=== PATIENT | male | born 1975 | race Caucasian/White ===

== ENCOUNTER 2017-07-23 09:56 | Emergency (ER) | payer OTHER, MEDICAID ==
[2017-07-23] MEDS: morphine 4 MG/ML VIAL IV (11:48)
[2017-07-23] MEDS: ONDANSETRON 4 MG INJ IV (11:48)
[2017-07-23] MEDS: SOD CHLORIDE 0.9% 1,000 ML IV (11:49)
[2017-07-23 11:51] LABS: ADD MAN DIFF? NO
[2017-07-23 12:01] LABS: WHITE BLOOD COUNT 12.5 10^3/ul (4.8-10.8)
[2017-07-23 12:01] LABS: ABNORMAL IP MESSAGE 1; BASOPHIL # 0.1 10^3/ul (0.0-0.1); BASOPHILS % 0.5 % (0.0-2.0); EOSINOPHILS # 0.4 10^3/ul (0.0-0.5); EOSINOPHILS % 3.3 % (0.0-7.0); HEMATOCRIT 43.8 % (42.0-52.0); HEMOGLOBIN 15.2 g/dl (14.0-18.0); LYMPHOCYTES # 5.4 10^3/ul (0.8-2.9); LYMPHOCYTES % 43.7 % (15.0-51.0); MEAN CORPUSCULAR HEMOGLOBIN 31.1 pg (29.0-33.0); MEAN CORPUSCULAR HGB CONC 34.7 g/dl (32.0-37.0); MEAN CORPUSCULAR VOLUME 89.6 fl (82.0-101.0); MEAN PLATELET VOLUME 11.5 fl (7.4-10.4); MONOCYTE # 1.2 10^3/ul (0.3-0.9); MONOCYTES % 9.3 % (0.0-11.0); NEUTROPHIL # 5.4 10^3/ul (1.6-7.5); PLATELET COUNT 486 10^3/UL (140-415); POSITIVE DIFF @See below; RED BLOOD COUNT 4.89 10^6/ul (4.70-6.10); RED CELL DISTRIBUTION WIDTH 13.3 % (11.5-14.5)
[2017-07-23 12:13] LABS: ALANINE AMINOTRANSFERASE 154 IU/L (13-69); ALBUMIN 4.5 g/dl (3.3-4.9); ALKALINE PHOSPHATASE 110 IU/L (42-121); ANION GAP 18 (8-16); ASPARTATE AMINO TRANSFERASE 181 IU/L (15-46); BILIRUBIN,INDIRECT 0.4 mg/dl (0-1.1); BILIRUBIN,TOTAL 0.4 mg/dl (0.2-1.3); BLOOD UREA NITROGEN 11 mg/dl (7-20); CALCIUM 9.9 mg/dl (8.4-10.2); CARBON DIOXIDE 29 mmol/L (21-31); CHLORIDE 102 mmol/L (97-110); CREATININE 0.74 mg/dl (0.61-1.24); GLUCOSE 99 mg/dl (70-220); LIPASE 39 U/L (23-300); SODIUM 145 mmol/L (135-144); TOTAL PROTEIN 9.5 g/dl (6.1-8.1)
[2017-07-23 12:14] LABS: ADD UMIC NO; UR ASCORBIC ACID 20 mg/dL (NEGATIVE); UR BILIRUBIN (Dip) NEGATIVE (NEGATIVE); UR BLOOD (Dip) NEGATIVE (NEGATIVE); UR CLARITY CLEAR (CLEAR); UR COLOR YELLOW (YELLOW); UR GLUCOSE (Dip) NEGATIVE (NEGATIVE); UR KETONES (Dip) NEGATIVE (NEGATIVE); UR LEUKOCYTE ESTERASE (Dip) NEGATIVE Leu/ul (NEGATIVE); UR NITRITE (Dip) NEGATIVE (NEGATIVE); UR SPECIFIC GRAVITY (Dip) 1.017 (1.003-1.030); UR TOTAL PROTEIN (Dip) NEGATIVE (NEGATIVE); UR UROBILINOGEN (Dip) NEGATIVE (NEGATIVE)
== END 2017-07-23 14:00 | disposition home or self-care (01) ==
LOC: FTE 09:56
DX: R10.31 Right lower quadrant pain (principal); F17.210 Nicotine dependence, cigarettes, uncomplicated; R11.10 Vomiting, unspecified
CPT/HCPCS: 36415; 74176; 80053; 81003; 83690; 85025; 96374; 96375; 99285-25

== ENCOUNTER 2018-04-27 18:40 | Inpatient (IN) | payer OTHER ==
[2018-04-27 19:19] LABS: WHITE BLOOD COUNT 25.9 10^3/ul (4.8-10.8)
[2018-04-27 19:19] LABS: ABNORMAL IP MESSAGE 1; HEMATOCRIT 26.3 % (42.0-52.0); HEMOGLOBIN 8.7 g/dl (14.0-18.0); MEAN CORPUSCULAR HEMOGLOBIN 29.5 pg (29.0-33.0); MEAN CORPUSCULAR HGB CONC 33.1 g/dl (32.0-37.0); MEAN CORPUSCULAR VOLUME 89.2 fl (82.0-101.0); NUCLEATED RED BLOOD CELLS% 0.7 /100WBC (0.0-0.0); POSITIVE DIFF @See below; RED BLOOD COUNT 2.95 10^6/ul (4.70-6.10)
[2018-04-27 19:27] LABS: ADD MAN DIFF? YES; PLATELET COUNT 7 10^3/UL (140-415)
[2018-04-27 19:28] LABS: PATH REVIEW? YES
[2018-04-27 19:35] LABS: ALANINE AMINOTRANSFERASE 53 IU/L (13-69); ALBUMIN 2.2 g/dl (3.3-4.9); ALBUMIN/GLOBULIN RATIO 0.47; ALKALINE PHOSPHATASE 197 IU/L (42-121); ANION GAP 13 (5-13); ASPARTATE AMINO TRANSFERASE 173 IU/L (15-46); BILIRUBIN,INDIRECT 0.5 mg/dl (0-1.1); BILIRUBIN,TOTAL 0.7 mg/dl (0.2-1.3); BLOOD UREA NITROGEN 55 mg/dl (7-20); CALCIUM 8.1 mg/dl (8.4-10.2); CARBON DIOXIDE 22 mmol/L (21-31); CHLORIDE 101 mmol/L (97-110); CREATININE 1.08 mg/dl (0.61-1.24); Estimated GFR > 60 mL/min (>60); GLUCOSE 124 mg/dl (70-220); LIPASE 13 U/L (23-300); POTASSIUM 5.2 mmol/L (3.5-5.1); SODIUM 136 mmol/L (135-144); TOTAL PROTEIN 6.8 g/dl (6.1-8.1)
[2018-04-27 19:42] LABS: INR 1.82; PARTIAL THROMBOPLASTIN TIME 37.8 Sec (23.0-35.0); PROTIME 21.2 Sec (11.9-14.9); PT RATIO 1.7
[2018-04-27 19:46] LABS: TROPONIN-I 0.049 ng/ml (0.000-0.120)
[2018-04-27 19:48] LABS: ETHANOL < 10.0 mg/dl (0-0)
[2018-04-27] MEDS: ONDANSETRON 4 MG INJ IV (19:57)
[2018-04-27] MEDS: SODIUM CHLORIDE 0.9% 1L BAG IV* (19:57)
[2018-04-27] MEDS: morphine 4 MG/ML VIAL IV (19:57)
[2018-04-27] MEDS: CEFEPIME 2GM/50 ML (PMX) 50 ML IVPB (19:57)
[2018-04-27 20:02] LABS: ANISOCYTOSIS 2+ (0-0); BAND NEUTROPHILS #M 1.2 10^3/ul (0.0-0.6); BAND NEUTROPHILS % (M) 5 % (0-4); BURR CELLS 2+ (0-0); ERYTHROBLAST% (NRBC) (M) 2 % (0-0); GIANT THROMBO% (M) 3 % (0-0); HYPOCHROMASIA 1+ (0-0); LYMPHOCYTES #M 0.5 10^3/ul (0.8-2.9); LYMPHOCYTES % (M) 2 % (15-51); MONOCYTE #M 0.5 10^3/ul (0.3-0.9); MONOCYTES % (M) 2 % (0-11); PLATELET MORPHOLOGY COMMENT @See below; POIKILOCYTOSIS 3+ (0-0); POLYCHROMASIA 2+ (0-0); SEG NEUT #M 23.9 10^3/ul (1.6-7.5); SEGMENTED NEUTROPHILS (M) % 91 % (39-77); SMUDGE%M 11 % (0-0)
[2018-04-27] MEDS: SOD CHLORIDE 0.9% 0 ML IV (20:02)
[2018-04-27] MEDS ORDERED: ONDANSETRON 4 MG INJ IV (20:30)
[2018-04-27] MEDS ORDERED: ACETAMINOPHEN 325 MG TAB PO (20:30)
[2018-04-27] MEDS: VANCOMYCIN 1 GM (PMX) 250 ML IVPB (20:44)
[2018-04-27 22:16] LABS: ADD UMIC YES; UR ASCORBIC ACID NEGATIVE (NEGATIVE); UR BACTERIA FEW /HPF (NONE SEEN); UR BILIRUBIN (Dip) NEGATIVE (NEGATIVE); UR BLOOD (Dip) 2+ mg/dL (NEGATIVE); UR CLARITY CLEAR (CLEAR); UR COLOR YELLOW (YELLOW); UR GLUCOSE (Dip) NEGATIVE (NEGATIVE); UR KETONES (Dip) NEGATIVE (NEGATIVE); UR LEUKOCYTE ESTERASE (Dip) NEGATIVE Leu/ul (NEGATIVE); UR NITRITE (Dip) NEGATIVE (NEGATIVE); UR RBC 22 /HPF (0-5); UR SPECIFIC GRAVITY (Dip) 1.014 (1.003-1.030); UR TOTAL PROTEIN (Dip) NEGATIVE (NEGATIVE); UR UROBILINOGEN (Dip) 2+ mg/dL (NEGATIVE); UR WBC 4 /HPF (0-5)
[2018-04-27 22:25] LABS: BARBITURATES Negative (NEGATIVE); BENZODIAZEPINES Negative (NEGATIVE); CANNABINOIDS Negative (NEGATIVE); COCAINE Negative (NEGATIVE)
[2018-04-27 22:26] LABS: AMPHETAMINE/METHAMPHETAMINE Positive (NEGATIVE)
[2018-04-27 22:27] LABS: OPIATES Positive (NEGATIVE)
[2018-04-27] MEDS ORDERED: NACL 0.9% 3 ML SYG IV (22:30)
[2018-04-27] MEDS: SOD CHLORIDE 0.9% 1,000 ML IV ×2 (22:51→23:48)
[2018-04-27] MEDS: PIPER-TAZO 3.375 GM IV (PMX) 100 ML IVPB (23:48)
[2018-04-28] MEDS: SOD CHLORIDE 0.9% 1,000 ML IV ×5 (01:55→16:29)
[2018-04-28] MEDS: MIDODRINE 5 MG TAB GTB ×4 (03:13→17:00)
[2018-04-28] MEDS: SOD CHLORIDE 0.9% 250 ML IV (03:33)
[2018-04-28] MEDS: ALBUMIN HUMAN 25% 100 ML IV (03:36)
[2018-04-28 04:45] LABS: TYPE AND SCREEN 1 1
[2018-04-28] MEDS: PIPER-TAZO 3.375 GM IV (PMX) 100 ML IVPB ×4 (05:57→23:55)
[2018-04-28] MEDS: SOD CHLORIDE 0.9% 500 ML IV (07:04)
[2018-04-28] MEDS: NALOXONE (0.4 MG/ML) INJ IV (08:10)
[2018-04-28 08:45] LABS: ABNORMAL IP MESSAGE 1; HEMATOCRIT 23.7 % (42.0-52.0); HEMOGLOBIN 7.9 g/dl (14.0-18.0); MEAN CORPUSCULAR HEMOGLOBIN 29.7 pg (29.0-33.0); MEAN CORPUSCULAR HGB CONC 33.3 g/dl (32.0-37.0); MEAN CORPUSCULAR VOLUME 89.1 fl (82.0-101.0); MEAN PLATELET VOLUME 9.5 fl (7.4-10.4); NUCLEATED RED BLOOD CELLS% 0.2 /100WBC (0.0-0.0); POSITIVE DIFF @See below; RED BLOOD COUNT 2.66 10^6/ul (4.70-6.10); RED CELL DISTRIBUTION WIDTH 17.3 % (11.5-14.5)
[2018-04-28 08:45] LABS: WHITE BLOOD COUNT 33.5 10^3/ul (4.8-10.8)
[2018-04-28 08:54] LABS: PLATELET COUNT 30 10^3/UL (140-415)
[2018-04-28 08:55] LABS: ADD MAN DIFF? YES
[2018-04-28 09:23] LABS: IRON 19 ug/dl (35-150)
[2018-04-28 09:25] LABS: ALANINE AMINOTRANSFERASE 69 IU/L (13-69); ALBUMIN 2.2 g/dl (3.3-4.9); ALBUMIN/GLOBULIN RATIO 0.57; ALKALINE PHOSPHATASE 147 IU/L (42-121); ANION GAP 9 (5-13); ASPARTATE AMINO TRANSFERASE 248 IU/L (15-46); BILIRUBIN,INDIRECT 0.4 mg/dl (0-1.1); BILIRUBIN,TOTAL 1.4 mg/dl (0.2-1.3); BLOOD UREA NITROGEN 56 mg/dl (7-20); CARBON DIOXIDE 18 mmol/L (21-31); CHLORIDE 112 mmol/L (97-110); CREATININE 1.14 mg/dl (0.61-1.24); Estimated GFR > 60 mL/min (>60); GLUCOSE 106 mg/dl (70-220); MAGNESIUM 2.3 mg/dl (1.7-2.5); POTASSIUM 4.9 mmol/L (3.5-5.1); SODIUM 139 mmol/L (135-144)
[2018-04-28 09:29] LABS: CREATINE KINASE 24 IU/L (23-200)
[2018-04-28] MEDS ORDERED: ENOXAPARIN 40 MG/0.4 ML SYG SC (09:30)
[2018-04-28] MEDS ORDERED: VANCOMYCIN IV PER PHARMACY XX (09:30)
[2018-04-28 09:32] LABS: % IRON SATURATION 9 % SAT (22-52); TOTAL IRON BINDING CAPACITY 206 ug/dl (241-421)
[2018-04-28 09:41] LABS: CK-MB 0.73 ng/ml (0.0-2.4); TROPONIN-I 0.026 ng/ml (0.000-0.120)
[2018-04-28 10:06] LABS: ANISOCYTOSIS 2+ (0-0); BAND NEUTROPHILS #M 5.6 10^3/ul (0.0-0.6); BAND NEUTROPHILS % (M) 17 % (0-4); BURR CELLS 3+ (0-0); ERYTHROBLAST% (NRBC) (M) 1 % (0-0); LYMPHOCYTES #M 2.6 10^3/ul (0.8-2.9); LYMPHOCYTES % (M) 8 % (15-51); MONOCYTE #M 1.6 10^3/ul (0.3-0.9); MONOCYTES % (M) 5 % (0-11); PLATELET ESTIMATE SIG DECREASED; POIKILOCYTOSIS 3+ (0-0); POLYCHROMASIA 1+ (0-0); SEG NEUT #M 25.3 10^3/ul (1.6-7.5); SEGMENTED NEUTROPHILS (M) % 70 % (39-77); SMUDGE%M 6 % (0-0)
[2018-04-28 10:33] LABS: B-TYPE NATRIURETIC PEPTIDE 13300 PG/ML (0-125)
[2018-04-28] MEDS: VANCOMYCIN 1 GM 250 ML IVPB (11:39)
[2018-04-28 13:42] LABS: LACTIC ACID 1.8 mmol/L (0.5-2.0)
[2018-04-29] MEDS: VANCOMYCIN 1 GM 250 ML IVPB ×2 (00:38→11:18)
[2018-04-29] MEDS: PIPER-TAZO 3.375 GM IV (PMX) 100 ML IVPB ×3 (05:56→17:38)
[2018-04-29] MEDS: SOD CHLORIDE 0.9% 1,000 ML IV ×2 (07:38→21:22)
[2018-04-29] MEDS: LORAZEPAM 2 MG INJ IV (08:01)
[2018-04-29] MEDS: MIDODRINE 5 MG TAB GTB ×3 (09:00→16:41)
[2018-04-29 10:56] LABS: ANION GAP 14 (5-13); BLOOD UREA NITROGEN 54 mg/dl (7-20); CALCIUM 7.6 mg/dl (8.4-10.2); CARBON DIOXIDE 16 mmol/L (21-31); CHLORIDE 113 mmol/L (97-110); CREATININE 0.99 mg/dl (0.61-1.24); Estimated GFR > 60 mL/min (>60); GLUCOSE 150 mg/dl (70-220); POTASSIUM 4.6 mmol/L (3.5-5.1); SODIUM 143 mmol/L (135-144)
[2018-04-29 11:25] LABS: WHITE BLOOD COUNT 27.8 10^3/ul (4.8-10.8)
[2018-04-29 11:25] LABS: ABNORMAL IP MESSAGE 1; HEMATOCRIT 27.2 % (42.0-52.0); MEAN CORPUSCULAR HEMOGLOBIN 29.4 pg (29.0-33.0); MEAN CORPUSCULAR HGB CONC 33.1 g/dl (32.0-37.0); MEAN CORPUSCULAR VOLUME 88.9 fl (82.0-101.0); NUCLEATED RED BLOOD CELLS% 0.1 /100WBC (0.0-0.0); POSITIVE DIFF @See below; RED BLOOD COUNT 3.06 10^6/ul (4.70-6.10); RED CELL DISTRIBUTION WIDTH 17.5 % (11.5-14.5)
[2018-04-29 11:32] LABS: ADD MAN DIFF? YES; PLATELET COUNT 7 10^3/UL (140-415)
[2018-04-29 12:22] LABS: ANISOCYTOSIS 2+ (0-0); BAND NEUTROPHILS #M 0.2 10^3/ul (0.0-0.6); BAND NEUTROPHILS % (M) 1 % (0-4); BURR CELLS 3+ (0-0); ERYTHROBLAST% (NRBC) (M) 1 % (0-0); LYMPHOCYTES #M 2.7 10^3/ul (0.8-2.9); LYMPHOCYTES % (M) 10 % (15-51); MONOCYTE #M 1.9 10^3/ul (0.3-0.9); MONOCYTES % (M) 7 % (0-11); PLATELET ESTIMATE SIG DECREASED; POIKILOCYTOSIS 2+ (0-0); POLYCHROMASIA 3+ (0-0); SEG NEUT #M 22.9 10^3/ul (1.6-7.5); SEGMENTED NEUTROPHILS (M) % 82 % (39-77); SMUDGE%M 7 % (0-0)
[2018-04-29 16:01] LABS: HIV 1&2 ANTIBODY NEGATIVE (NEGATIVE)
[2018-04-29 23:51] LABS: VANCOMYCIN,TROUGH 16.2 ug/ml (10.0-20.0)
[2018-04-30] MEDS: PIPER-TAZO 3.375 GM IV (PMX) 100 ML IVPB ×4 (00:20→17:22)
[2018-04-30] MEDS: VANCOMYCIN 1 GM 250 ML IVPB ×3 (00:51→23:20)
[2018-04-30] MEDS: ONDANSETRON 4 MG INJ IV (07:05)
[2018-04-30] MEDS: HYDROCODONE/APAP (5/325) TAB PO (08:51)
[2018-04-30] MEDS: MIDODRINE 5 MG TAB GTB ×5 (09:00→17:25)
[2018-04-30 09:12] LABS: WHITE BLOOD COUNT 26.9 10^3/ul (4.8-10.8)
[2018-04-30 09:12] LABS: ABNORMAL IP MESSAGE 1; HEMATOCRIT 26.1 % (42.0-52.0); HEMOGLOBIN 8.6 g/dl (14.0-18.0); MEAN CORPUSCULAR HEMOGLOBIN 29.1 pg (29.0-33.0); MEAN CORPUSCULAR VOLUME 88.2 fl (82.0-101.0); NUCLEATED RED BLOOD CELLS% 0.5 /100WBC (0.0-0.0); POSITIVE DIFF @See below; RED BLOOD COUNT 2.96 10^6/ul (4.70-6.10)
[2018-04-30 09:18] LABS: ADD MAN DIFF? YES; PLATELET COUNT 15 10^3/UL (140-415)
[2018-04-30 09:36] LABS: ANION GAP 9 (5-13); BLOOD UREA NITROGEN 30 mg/dl (7-20); CALCIUM 7.9 mg/dl (8.4-10.2); CARBON DIOXIDE 22 mmol/L (21-31); CHLORIDE 115 mmol/L (97-110); CREATININE 0.75 mg/dl (0.61-1.24); Estimated GFR > 60 mL/min (>60); GLUCOSE 102 mg/dl (70-220); POTASSIUM 3.5 mmol/L (3.5-5.1); SODIUM 146 mmol/L (135-144)
[2018-04-30 09:58] LABS: ANISOCYTOSIS 2+ (0-0); BAND NEUTROPHILS #M 0.5 10^3/ul (0.0-0.6); BAND NEUTROPHILS % (M) 2 % (0-4); BURR CELLS 1+ (0-0); ERYTHROBLAST% (NRBC) (M) 1 % (0-0); LYMPHOCYTES #M 1.8 10^3/ul (0.8-2.9); LYMPHOCYTES % (M) 7 % (15-51); MONOCYTE #M 0.2 10^3/ul (0.3-0.9); MONOCYTES % (M) 1 % (0-11); PLATELET ESTIMATE SIG DECREASED; POIKILOCYTOSIS 1+ (0-0); POLYCHROMASIA 3+ (0-0); REACTIVE LYMPHOCYTES #M 0.5 10^3/ul (0.0-0.0); REACTIVE LYMPHOCYTES% (M) 2 % (0-0); SEG NEUT #M 23.8 10^3/ul (1.6-7.5); SEGMENTED NEUTROPHILS (M) % 88 % (39-77); SMUDGE%M 24 % (0-0); TARGET CELLS 1+ (0-0)
[2018-04-30] MEDS: SOD CHLORIDE 0.9% 1,000 ML IV ×2 (10:20→23:20)
[2018-04-30] MEDS: FUROSEMIDE 40 MG INJ IV (16:29)
[2018-04-30] MEDS ORDERED: METHADONE 10 MG TAB PO (17:00)
[2018-04-30] MEDS: METHADONE (1 MG/ML 5 ML PO UD SYG) PO (17:22)
[2018-04-30] MEDS: METOCLOPRAMIDE 10 MG INJ IV (21:40)
[2018-04-30] MEDS: NALOXONE (0.4 MG/ML) INJ IV (23:23)
[2018-05-01] MEDS: PIPER-TAZO 3.375 GM IV (PMX) 100 ML IVPB ×4 (01:46→17:16)
[2018-05-01] MEDS: SOD CHLORIDE 0.9% 1,000 ML IV ×2 (06:15→11:57)
[2018-05-01] MEDS: FUROSEMIDE 40 MG INJ IV (06:48)
[2018-05-01] MEDS: MIDODRINE 5 MG TAB GTB ×3 (09:00→17:16)
[2018-05-01] MEDS ORDERED: METHADONE 10 MG TAB PO (09:00)
[2018-05-01] MEDS: METHADONE (1 MG/ML 5 ML PO UD SYG) PO ×2 (09:00→12:07)
[2018-05-01] MEDS: VANCOMYCIN 1 GM 250 ML IVPB ×2 (11:57→22:54)
[2018-05-01 20:04] LABS: OCCULT BLOOD STOOL NEGATIVE (NEGATIVE)
[2018-05-01 20:28] LABS: LACTIC ACID 2.4 mmol/L (0.5-2.0)
[2018-05-02] MEDS: PIPER-TAZO 3.375 GM IV (PMX) 100 ML IVPB ×4 (00:23→17:42)
[2018-05-02 02:44] LABS: LACTIC ACID 2.1 mmol/L (0.5-2.0)
[2018-05-02] MEDS: SOD CHLORIDE 0.9% 1,000 ML IV ×3 (02:53→22:15)
[2018-05-02] MEDS: FUROSEMIDE 40 MG INJ IV (05:33)
[2018-05-02] MEDS: VANCOMYCIN 1 GM 250 ML IVPB (11:42)
[2018-05-02] MEDS: MIDODRINE 5 MG TAB GTB ×3 (11:42→17:42)
[2018-05-02] MEDS: METHADONE (1 MG/ML 5 ML PO UD SYG) PO (13:13)
[2018-05-02 13:24] LABS: ADD MAN DIFF? NO
[2018-05-02 13:40] LABS: WHITE BLOOD COUNT 24.3 10^3/ul (4.8-10.8)
[2018-05-02 13:40] LABS: ABNORMAL IP MESSAGE 1; BASOPHIL # 0.1 10^3/ul (0.0-0.1); BASOPHILS % 0.2 % (0.0-2.0); EOSINOPHILS # 0.2 10^3/ul (0.0-0.5); EOSINOPHILS % 0.7 % (0.0-7.0); HEMATOCRIT 26.2 % (42.0-52.0); HEMOGLOBIN 8.8 g/dl (14.0-18.0); LYMPHOCYTES # 3.7 10^3/ul (0.8-2.9); LYMPHOCYTES % 15.2 % (15.0-51.0); MEAN CORPUSCULAR HEMOGLOBIN 29.8 pg (29.0-33.0); MEAN CORPUSCULAR HGB CONC 33.6 g/dl (32.0-37.0); MEAN CORPUSCULAR VOLUME 88.8 fl (82.0-101.0); MONOCYTE # 1.2 10^3/ul (0.3-0.9); MONOCYTES % 5.1 % (0.0-11.0); NEUTROPHIL # 18.6 10^3/ul (1.6-7.5); NEUTROPHILS % 76.4 % (39.0-77.0); NUCLEATED RED BLOOD CELLS # 1.5 10^3/ul (0.0-0.0); PLATELET COUNT 35 10^3/UL (140-415); POSITIVE DIFF @See below; RED BLOOD COUNT 2.95 10^6/ul (4.70-6.10); RED CELL DISTRIBUTION WIDTH 18.7 % (11.5-14.5)
[2018-05-02 13:42] LABS: ANION GAP 8 (5-13); BLOOD UREA NITROGEN 16 mg/dl (7-20); CALCIUM 7.2 mg/dl (8.4-10.2); CARBON DIOXIDE 21 mmol/L (21-31); CHLORIDE 105 mmol/L (97-110); Estimated GFR > 60 mL/min (>60); GLUCOSE 147 mg/dl (70-220); POTASSIUM 3.2 mmol/L (3.5-5.1); SODIUM 134 mmol/L (135-144)
[2018-05-02] MEDS: POTASSIUM CHLORIDE (SR) 20 MEQ TAB PO ×2 (16:44→18:42)
[2018-05-02] MEDS: BALSAM PERU/CASTOR OIL 60 GM TUBE TOP (21:00)
[2018-05-03] MEDS: VANCOMYCIN 1 GM 250 ML IVPB ×2 (02:24→12:03)
[2018-05-03] MEDS: PIPER-TAZO 3.375 GM IV (PMX) 100 ML IVPB ×3 (05:57→12:03)
[2018-05-03] MEDS: FUROSEMIDE 40 MG INJ IV (05:57)
[2018-05-03] MEDS: MIDODRINE 5 MG TAB GTB ×3 (08:42→17:44)
[2018-05-03] MEDS: BALSAM PERU/CASTOR OIL 60 GM TUBE TOP ×3 (08:43→21:13)
[2018-05-03] MEDS: SOD CHLORIDE 0.9% 1,000 ML IV ×2 (08:47→18:15)
[2018-05-03] MEDS: METHADONE (1 MG/ML 5 ML PO UD SYG) PO (09:32)
[2018-05-03 10:21] LABS: VANCOMYCIN,TROUGH 15.6 ug/ml (10.0-20.0)
[2018-05-03] MEDS: LIDOCAINE 1% (MPF) 5 ML VIAL SC (15:30)
[2018-05-03] MEDS: CEFTRIAXONE 2 GM/50 ML (PMX) 50 ML IVPB (16:12)
[2018-05-03 16:24] LABS: ADD MAN DIFF? NO
[2018-05-03 16:49] LABS: ABNORMAL IP MESSAGE 1; BASOPHIL # 0.1 10^3/ul (0.0-0.1); BASOPHILS % 0.2 % (0.0-2.0); EOSINOPHILS # 0.1 10^3/ul (0.0-0.5); EOSINOPHILS % 0.5 % (0.0-7.0); HEMATOCRIT 22.4 % (42.0-52.0); HEMOGLOBIN 7.2 g/dl (14.0-18.0); LYMPHOCYTES # 4.3 10^3/ul (0.8-2.9); LYMPHOCYTES % 16.1 % (15.0-51.0); MEAN CORPUSCULAR HEMOGLOBIN 30.3 pg (29.0-33.0); MEAN CORPUSCULAR HGB CONC 32.1 g/dl (32.0-37.0); MEAN CORPUSCULAR VOLUME 94.1 fl (82.0-101.0); MONOCYTES % 3.5 % (0.0-11.0); NEUTROPHIL # 21.1 10^3/ul (1.6-7.5); NEUTROPHILS % 78.3 % (39.0-77.0); NUCLEATED RED BLOOD CELLS # 0.3 10^3/ul (0.0-0.0); PLATELET COUNT 77 10^3/UL (140-415); POSITIVE DIFF @See below; RED BLOOD COUNT 2.38 10^6/ul (4.70-6.10); RED CELL DISTRIBUTION WIDTH 20.8 % (11.5-14.5)
[2018-05-03 17:06] LABS: MEAN PLATELET VOLUME 14.2 fl (7.4-10.4)
[2018-05-03] MEDS: HYDROCODONE/APAP (5/325) TAB PO (21:15)
[2018-05-04] MEDS: SOD CHLORIDE 0.9% 1,000 ML IV ×3 (03:41→16:47)
[2018-05-04] MEDS: FUROSEMIDE 40 MG INJ IV (05:35)
[2018-05-04 06:05] LABS: WHITE BLOOD COUNT 25.3 10^3/ul (4.8-10.8)
[2018-05-04 06:05] LABS: ABNORMAL IP MESSAGE 1; ADD MAN DIFF? NO; BASOPHILS % 0.1 % (0.0-2.0); EOSINOPHILS # 0.1 10^3/ul (0.0-0.5); EOSINOPHILS % 0.4 % (0.0-7.0); HEMATOCRIT 22.9 % (42.0-52.0); HEMOGLOBIN 7.4 g/dl (14.0-18.0); LYMPHOCYTES # 3.5 10^3/ul (0.8-2.9); LYMPHOCYTES % 13.7 % (15.0-51.0); MEAN CORPUSCULAR HEMOGLOBIN 30.6 pg (29.0-33.0); MEAN CORPUSCULAR HGB CONC 32.3 g/dl (32.0-37.0); MEAN CORPUSCULAR VOLUME 94.6 fl (82.0-101.0); MONOCYTE # 0.9 10^3/ul (0.3-0.9); MONOCYTES % 3.5 % (0.0-11.0); NEUTROPHIL # 20.5 10^3/ul (1.6-7.5); NEUTROPHILS % 80.9 % (39.0-77.0); NUCLEATED RED BLOOD CELLS # 0.2 10^3/ul (0.0-0.0); NUCLEATED RED BLOOD CELLS% 0.7 /100WBC (0.0-0.0); PLATELET COUNT 100 10^3/UL (140-415); POSITIVE DIFF @See below; RED BLOOD COUNT 2.42 10^6/ul (4.70-6.10); RED CELL DISTRIBUTION WIDTH 21.8 % (11.5-14.5)
[2018-05-04 06:38] LABS: ALBUMIN 2.1 g/dl (3.3-4.9); ANION GAP 6 (5-13); BLOOD UREA NITROGEN 12 mg/dl (7-20); CALCIUM 7.7 mg/dl (8.4-10.2); CARBON DIOXIDE 24 mmol/L (21-31); CHLORIDE 108 mmol/L (97-110); CREATININE 0.66 mg/dl (0.61-1.24); GLUCOSE 131 mg/dl (70-220); MAGNESIUM 1.5 mg/dl (1.7-2.5); PHOSPHORUS 3.6 mg/dl (2.5-4.9); POTASSIUM 3.8 mmol/L (3.5-5.1); SODIUM 138 mmol/L (135-144)
[2018-05-04] MEDS: MIDODRINE 5 MG TAB GTB ×3 (08:14→16:48)
[2018-05-04] MEDS: METHADONE (1 MG/ML 5 ML PO UD SYG) PO (08:21)
[2018-05-04] MEDS: BALSAM PERU/CASTOR OIL 60 GM TUBE TOP ×2 (08:22→21:16)
[2018-05-04] MEDS: MAGNESIUM SULFATE 2 GM/50 ML 50 ML IVPB (09:40)
[2018-05-04] MEDS: HYDROCODONE/APAP (5/325) TAB PO (12:16)
[2018-05-04] MEDS: CEFTRIAXONE 2 GM/50 ML (PMX) 50 ML IVPB (14:47)
[2018-05-05] MEDS: SOD CHLORIDE 0.9% 1,000 ML IV ×2 (02:51→11:54)
[2018-05-05 06:08] LABS: WHITE BLOOD COUNT 27.1 10^3/ul (4.8-10.8)
[2018-05-05 06:08] LABS: ABNORMAL IP MESSAGE 1; HEMATOCRIT 21.7 % (42.0-52.0); MEAN CORPUSCULAR HEMOGLOBIN 30.2 pg (29.0-33.0); MEAN CORPUSCULAR HGB CONC 31.3 g/dl (32.0-37.0); MEAN CORPUSCULAR VOLUME 96.4 fl (82.0-101.0); MEAN PLATELET VOLUME 12.8 fl (7.4-10.4); NUCLEATED RED BLOOD CELLS% 0.8 /100WBC (0.0-0.0); PLATELET COUNT 123 10^3/UL (140-415); POSITIVE DIFF @See below; RED BLOOD COUNT 2.25 10^6/ul (4.70-6.10); RED CELL DISTRIBUTION WIDTH 23.4 % (11.5-14.5)
[2018-05-05] MEDS: FUROSEMIDE 40 MG INJ IV (06:31)
[2018-05-05 06:32] LABS: HEMOGLOBIN 6.8 g/dl (14.0-18.0)
[2018-05-05 06:33] LABS: ADD MAN DIFF? YES
[2018-05-05] MEDS: HYDROCODONE/APAP (5/325) TAB PO ×2 (06:37→20:04)
[2018-05-05 08:11] LABS: ANISOCYTOSIS 2+ (0-0); BURR CELLS 1+ (0-0); ERYTHROBLAST% (NRBC) (M) 2 % (0-0); GIANT THROMBO% (M) 4 % (0-0); HYPOCHROMASIA 1+ (0-0); LYMPHOCYTES #M 0.8 10^3/ul (0.8-2.9); LYMPHOCYTES % (M) 3 % (15-51); MONOCYTE #M 0.5 10^3/ul (0.3-0.9); MONOCYTES % (M) 2 % (0-11); PLATELET ESTIMATE DECREASED; POIKILOCYTOSIS 1+ (0-0); POLYCHROMASIA 3+ (0-0); SEGMENTED NEUTROPHILS (M) % 95 % (39-77); SMUDGE%M 14 % (0-0)
[2018-05-05] MEDS: BALSAM PERU/CASTOR OIL 60 GM TUBE TOP ×2 (09:00→20:04)
[2018-05-05] MEDS: MIDODRINE 5 MG TAB GTB ×3 (09:00→17:00)
[2018-05-05] MEDS: METHADONE (1 MG/ML 5 ML PO UD SYG) PO (09:21)
[2018-05-05 10:30] LABS: ABNORMAL IP MESSAGE 1; HEMATOCRIT 23.6 % (42.0-52.0); HEMOGLOBIN 7.5 g/dl (14.0-18.0); MEAN CORPUSCULAR HEMOGLOBIN 30.2 pg (29.0-33.0); MEAN CORPUSCULAR HGB CONC 31.8 g/dl (32.0-37.0); MEAN CORPUSCULAR VOLUME 95.2 fl (82.0-101.0); MEAN PLATELET VOLUME 12.7 fl (7.4-10.4); NUCLEATED RED BLOOD CELLS% 0.6 /100WBC (0.0-0.0); PLATELET COUNT 131 10^3/UL (140-415); POSITIVE DIFF @See below; RED BLOOD COUNT 2.48 10^6/ul (4.70-6.10); RED CELL DISTRIBUTION WIDTH 23.4 % (11.5-14.5)
[2018-05-05 10:30] LABS: WHITE BLOOD COUNT 29.4 10^3/ul (4.8-10.8)
[2018-05-05 10:51] LABS: ADD MAN DIFF? YES
[2018-05-05 12:28] LABS: ANISOCYTOSIS 1+ (0-0); BAND NEUTROPHILS #M 0.5 10^3/ul (0.0-0.6); BAND NEUTROPHILS % (M) 2 % (0-4); EOSINOPHILS % (M) 1 % (0-7); LYMPHOCYTES #M 1.1 10^3/ul (0.8-2.9); LYMPHOCYTES % (M) 4 % (15-51); MONOCYTE #M 0.8 10^3/ul (0.3-0.9); MONOCYTES % (M) 3 % (0-11); PLATELET ESTIMATE DECREASED; POIKILOCYTOSIS 1+ (0-0); POLYCHROMASIA 1+ (0-0); SEG NEUT #M 26.6 10^3/ul (1.6-7.5); SEGMENTED NEUTROPHILS (M) % 90 % (39-77); SMUDGE%M 6 % (0-0); TARGET CELLS 1+ (0-0)
[2018-05-05] MEDS: CEFTRIAXONE 2 GM/50 ML (PMX) 50 ML IVPB (13:58)
[2018-05-05 17:21] LABS: IMMEDIATE SPIN CROSSMATCH 1 1
[2018-05-06] MEDS: SOD CHLORIDE 0.9% 1,000 ML IV ×3 (04:36→23:11)
[2018-05-06] MEDS: FUROSEMIDE 40 MG INJ IV (05:33)
[2018-05-06 06:45] LABS: WHITE BLOOD COUNT 27.1 10^3/ul (4.8-10.8)
[2018-05-06 06:45] LABS: ABNORMAL IP MESSAGE 1; HEMATOCRIT 27.3 % (42.0-52.0); HEMOGLOBIN 8.7 g/dl (14.0-18.0); MEAN CORPUSCULAR HEMOGLOBIN 30.5 pg (29.0-33.0); MEAN CORPUSCULAR HGB CONC 31.9 g/dl (32.0-37.0); MEAN CORPUSCULAR VOLUME 95.8 fl (82.0-101.0); MEAN PLATELET VOLUME 13.1 fl (7.4-10.4); NUCLEATED RED BLOOD CELLS% 0.6 /100WBC (0.0-0.0); PLATELET COUNT 167 10^3/UL (140-415); POSITIVE DIFF @See below; RED BLOOD COUNT 2.85 10^6/ul (4.70-6.10); RED CELL DISTRIBUTION WIDTH 22.6 % (11.5-14.5)
[2018-05-06 07:06] LABS: ADD MAN DIFF? YES
[2018-05-06] MEDS: MIDODRINE 5 MG TAB GTB ×3 (08:32→18:14)
[2018-05-06] MEDS: METHADONE (1 MG/ML 5 ML PO UD SYG) PO (08:33)
[2018-05-06] MEDS: BALSAM PERU/CASTOR OIL 60 GM TUBE TOP ×2 (08:33→21:01)
[2018-05-06 10:44] LABS: ANISOCYTOSIS 2+ (0-0); BAND NEUTROPHILS #M 0.5 10^3/ul (0.0-0.6); BAND NEUTROPHILS % (M) 2 % (0-4); ERYTHROBLAST% (NRBC) (M) 1 % (0-0); GIANT THROMBO% (M) 2 % (0-0); HYPOCHROMASIA 1+ (0-0); LYMPHOCYTES #M 0.8 10^3/ul (0.8-2.9); LYMPHOCYTES % (M) 3 % (15-51); MONOCYTE #M 0.5 10^3/ul (0.3-0.9); MONOCYTES % (M) 2 % (0-11); PLATELET ESTIMATE NORMAL; POIKILOCYTOSIS 1+ (0-0); POLYCHROMASIA 3+ (0-0); REACTIVE LYMPHOCYTES #M 0.2 10^3/ul (0.0-0.0); REACTIVE LYMPHOCYTES% (M) 1 % (0-0); SEG NEUT #M 25.1 10^3/ul (1.6-7.5); SEGMENTED NEUTROPHILS (M) % 92 % (39-77); SMUDGE%M 12 % (0-0); TARGET CELLS 1+ (0-0)
[2018-05-06] MEDS: MAGNESIUM SULFATE 2 GM/50 ML 50 ML IVPB (10:57)
[2018-05-06] MEDS: HYDROCODONE/APAP (5/325) TAB PO ×2 (13:12→16:05)
[2018-05-06] MEDS: CEFTRIAXONE 2 GM/50 ML (PMX) 50 ML IVPB (14:49)
[2018-05-06] MEDS: IOHEXOL 300MG/ML 150 ML BTL (16:13)
[2018-05-06] MEDS: SOD CHLORIDE 0.9% 100 ML (16:13)
[2018-05-07] MEDS: FUROSEMIDE 40 MG INJ IV ×3 (05:30→20:42)
[2018-05-07 08:16] LABS: ADD MAN DIFF? NO
[2018-05-07 08:25] LABS: WHITE BLOOD COUNT 28.1 10^3/ul (4.8-10.8)
[2018-05-07 08:25] LABS: ABNORMAL IP MESSAGE 1; BASOPHIL # 0.1 10^3/ul (0.0-0.1); BASOPHILS % 0.2 % (0.0-2.0); EOSINOPHILS # 0.1 10^3/ul (0.0-0.5); EOSINOPHILS % 0.5 % (0.0-7.0); HEMATOCRIT 27.5 % (42.0-52.0); HEMOGLOBIN 8.7 g/dl (14.0-18.0); LYMPHOCYTES # 2.9 10^3/ul (0.8-2.9); LYMPHOCYTES % 10.2 % (15.0-51.0); MEAN CORPUSCULAR HEMOGLOBIN 30.3 pg (29.0-33.0); MEAN CORPUSCULAR HGB CONC 31.6 g/dl (32.0-37.0); MEAN CORPUSCULAR VOLUME 95.8 fl (82.0-101.0); MEAN PLATELET VOLUME 12.6 fl (7.4-10.4); MONOCYTE # 1.3 10^3/ul (0.3-0.9); MONOCYTES % 4.5 % (0.0-11.0); NEUTROPHIL # 23.5 10^3/ul (1.6-7.5); NEUTROPHILS % 83.7 % (39.0-77.0); NUCLEATED RED BLOOD CELLS% 0.1 /100WBC (0.0-0.0); PLATELET COUNT 206 10^3/UL (140-415); POSITIVE DIFF @See below; RED BLOOD COUNT 2.87 10^6/ul (4.70-6.10); RED CELL DISTRIBUTION WIDTH 22.5 % (11.5-14.5)
[2018-05-07] MEDS: MIDODRINE 5 MG TAB GTB ×3 (08:33→17:14)
[2018-05-07] MEDS: BALSAM PERU/CASTOR OIL 60 GM TUBE TOP ×2 (08:33→20:44)
[2018-05-07] MEDS: ENOXAPARIN 40 MG/0.4 ML SYG SC (08:38)
[2018-05-07] MEDS: SOD CHLORIDE 0.9% 1,000 ML IV ×2 (08:40→12:15)
[2018-05-07 08:42] LABS: ALBUMIN 2.3 g/dl (3.3-4.9); ANION GAP 10 (5-13); BLOOD UREA NITROGEN 8 mg/dl (7-20); CARBON DIOXIDE 32 mmol/L (21-31); CHLORIDE 99 mmol/L (97-110); CREATININE 0.58 mg/dl (0.61-1.24); GLUCOSE 106 mg/dl (70-220); MAGNESIUM 1.5 mg/dl (1.7-2.5); POTASSIUM 3.4 mmol/L (3.5-5.1); SODIUM 141 mmol/L (135-144)
[2018-05-07] MEDS: METHADONE (1 MG/ML 5 ML PO UD SYG) PO (09:09)
[2018-05-07] MEDS: MAGNESIUM SULFATE 2 GM/50 ML 50 ML IVPB (09:09)
[2018-05-07] MEDS: ACETAMINOPHEN 325 MG TAB PO (09:21)
[2018-05-07] MEDS: POTASSIUM CHLORIDE 100 ML IVPB ×2 (10:33→13:48)
[2018-05-07] MEDS: CEFTRIAXONE 2 GM/50 ML (PMX) 50 ML IVPB (13:01)
[2018-05-07] MEDS: HYDROCODONE/APAP (5/325) TAB PO (13:01)
[2018-05-07] MEDS: POLYETHYLENE GLYCOL 17 GM PACKET PO ×2 (16:00→17:11)
[2018-05-07] MEDS: SENNA/DOCUSATE NA (8.6MG/50MG) TAB PO (20:43)
[2018-05-08] MEDS: HYDROCODONE/APAP (5/325) TAB PO ×3 (02:07→11:29)
[2018-05-08] MEDS: SOD CHLORIDE 0.9% 1,000 ML IV ×2 (03:35→20:35)
[2018-05-08 06:35] LABS: ABNORMAL IP MESSAGE 1; HEMATOCRIT 25.2 % (42.0-52.0); MEAN CORPUSCULAR HEMOGLOBIN 30.7 pg (29.0-33.0); MEAN CORPUSCULAR HGB CONC 31.7 g/dl (32.0-37.0); MEAN CORPUSCULAR VOLUME 96.6 fl (82.0-101.0); MEAN PLATELET VOLUME 11.6 fl (7.4-10.4); PLATELET COUNT 213 10^3/UL (140-415); POSITIVE DIFF @See below; RED BLOOD COUNT 2.61 10^6/ul (4.70-6.10); RED CELL DISTRIBUTION WIDTH 22.3 % (11.5-14.5)
[2018-05-08 06:58] LABS: ALBUMIN 2.2 g/dl (3.3-4.9); ANION GAP 9 (5-13); BLOOD UREA NITROGEN 10 mg/dl (7-20); CALCIUM 7.8 mg/dl (8.4-10.2); CARBON DIOXIDE 34 mmol/L (21-31); CHLORIDE 97 mmol/L (97-110); CREATININE 0.55 mg/dl (0.61-1.24); GLUCOSE 95 mg/dl (70-220); MAGNESIUM 1.6 mg/dl (1.7-2.5); PHOSPHORUS 4.7 mg/dl (2.5-4.9); POTASSIUM 3.9 mmol/L (3.5-5.1); SODIUM 140 mmol/L (135-144)
[2018-05-08 07:26] LABS: ADD MAN DIFF? YES
[2018-05-08] MEDS: METHADONE (1 MG/ML 5 ML PO UD SYG) PO (08:42)
[2018-05-08] MEDS: FUROSEMIDE 40 MG INJ IV ×2 (08:42→20:44)
[2018-05-08] MEDS: BALSAM PERU/CASTOR OIL 60 GM TUBE TOP ×2 (08:43→20:45)
[2018-05-08] MEDS: SENNA/DOCUSATE NA (8.6MG/50MG) TAB PO ×2 (08:54→18:15)
[2018-05-08] MEDS: POLYETHYLENE GLYCOL 17 GM PACKET PO ×2 (08:54→18:15)
[2018-05-08] MEDS: MAGNESIUM SULFATE 2 GM/50 ML 50 ML IVPB (09:14)
[2018-05-08] MEDS: MIDODRINE 5 MG TAB GTB ×3 (09:14→17:00)
[2018-05-08] MEDS ORDERED: VANCOMYCIN IV PER PHARMACY XX (10:00)
[2018-05-08 10:18] LABS: ANISOCYTOSIS 2+ (0-0); BAND NEUTROPHILS #M 0.6 10^3/ul (0.0-0.6); BAND NEUTROPHILS % (M) 2 % (0-4); LYMPHOCYTES #M 0.3 10^3/ul (0.8-2.9); LYMPHOCYTES % (M) 1 % (15-51); MONOCYTE #M 0.6 10^3/ul (0.3-0.9); MONOCYTES % (M) 2 % (0-11); PLATELET ESTIMATE NORMAL; POLYCHROMASIA 3+ (0-0); REACTIVE LYMPHOCYTES #M 0.6 10^3/ul (0.0-0.0); REACTIVE LYMPHOCYTES% (M) 2 % (0-0); SEG NEUT #M 31.8 10^3/ul (1.6-7.5); SEGMENTED NEUTROPHILS (M) % 93 % (39-77); SMUDGE%M 6 % (0-0)
[2018-05-08] MEDS: CEFEPIME 1GM/50 ML (PMX) 50 ML IVPB ×2 (11:24→20:44)
[2018-05-08] MEDS: VANCOMYCIN HCL 1.5 GM in SOD CHLORIDE 0.9% 250 ML IVPB (13:48)
[2018-05-08] MEDS: LORAZEPAM 2 MG INJ IV (13:55)
[2018-05-08] MEDS: VANCOMYCIN 1 GM 250 ML IVPB (23:58)
[2018-05-09] MEDS: HYDROCODONE/APAP (5/325) TAB PO ×2 (00:24→21:11)
[2018-05-09] MEDS: SOD CHLORIDE 0.9% 1,000 ML IV ×2 (05:35→13:04)
[2018-05-09 06:12] LABS: ADD MAN DIFF? NO
[2018-05-09 06:26] LABS: BASOPHIL # 0.1 10^3/ul (0.0-0.1); BASOPHILS % 0.4 % (0.0-2.0); EOSINOPHILS # 0.3 10^3/ul (0.0-0.5); EOSINOPHILS % 1.4 % (0.0-7.0); HEMATOCRIT 26.4 % (42.0-52.0); HEMOGLOBIN 8.3 g/dl (14.0-18.0); LYMPHOCYTES # 4.1 10^3/ul (0.8-2.9); LYMPHOCYTES % 17.9 % (15.0-51.0); MEAN CORPUSCULAR HEMOGLOBIN 30.4 pg (29.0-33.0); MEAN CORPUSCULAR HGB CONC 31.4 g/dl (32.0-37.0); MEAN CORPUSCULAR VOLUME 96.7 fl (82.0-101.0); MEAN PLATELET VOLUME 11.4 fl (7.4-10.4); MONOCYTE # 1.5 10^3/ul (0.3-0.9); MONOCYTES % 6.5 % (0.0-11.0); NEUTROPHIL # 16.6 10^3/ul (1.6-7.5); NEUTROPHILS % 73.1 % (39.0-77.0); PLATELET COUNT 272 10^3/UL (140-415); RED BLOOD COUNT 2.73 10^6/ul (4.70-6.10); RED CELL DISTRIBUTION WIDTH 21.3 % (11.5-14.5)
[2018-05-09 06:26] LABS: WHITE BLOOD COUNT 22.7 10^3/ul (4.8-10.8)
[2018-05-09 06:43] LABS: ALBUMIN 2.3 g/dl (3.3-4.9); ANION GAP 8 (5-13); BLOOD UREA NITROGEN 11 mg/dl (7-20); CARBON DIOXIDE 34 mmol/L (21-31); CHLORIDE 98 mmol/L (97-110); CREATININE 0.59 mg/dl (0.61-1.24); GLUCOSE 114 mg/dl (70-220); MAGNESIUM 1.8 mg/dl (1.7-2.5); POTASSIUM 3.6 mmol/L (3.5-5.1); SODIUM 140 mmol/L (135-144)
[2018-05-09] MEDS: SENNA/DOCUSATE NA (8.6MG/50MG) TAB PO ×2 (08:37→21:00)
[2018-05-09] MEDS: POLYETHYLENE GLYCOL 17 GM PACKET PO (08:37)
[2018-05-09] MEDS: FUROSEMIDE 40 MG INJ IV ×2 (08:37→21:00)
[2018-05-09] MEDS: CEFEPIME 1GM/50 ML (PMX) 50 ML IVPB ×2 (08:38→21:00)
[2018-05-09] MEDS: METHADONE (1 MG/ML 5 ML PO UD SYG) PO (08:39)
[2018-05-09] MEDS: MIDODRINE 5 MG TAB GTB ×3 (08:44→17:15)
[2018-05-09] MEDS: BALSAM PERU/CASTOR OIL 60 GM TUBE TOP ×2 (08:45→21:01)
[2018-05-09] MEDS: VANCOMYCIN 1 GM 250 ML IVPB (12:58)
[2018-05-09 23:54] LABS: VANCOMYCIN,TROUGH 11.4 ug/ml (10.0-20.0)
[2018-05-10] MEDS: VANCOMYCIN 1 GM 250 ML IVPB ×2 (00:38→12:21)
[2018-05-10 04:51] LABS: OCCULT BLOOD STOOL NEGATIVE (NEGATIVE)
[2018-05-10] MEDS: SOD CHLORIDE 0.9% 1,000 ML IV ×2 (06:07→22:35)
[2018-05-10 07:33] LABS: ADD MAN DIFF? NO
[2018-05-10 07:36] LABS: BASOPHIL # 0.1 10^3/ul (0.0-0.1); BASOPHILS % 0.6 % (0.0-2.0); EOSINOPHILS # 0.3 10^3/ul (0.0-0.5); EOSINOPHILS % 1.4 % (0.0-7.0); HEMATOCRIT 26.4 % (42.0-52.0); HEMOGLOBIN 8.2 g/dl (14.0-18.0); LYMPHOCYTES # 4.5 10^3/ul (0.8-2.9); LYMPHOCYTES % 22.8 % (15.0-51.0); MEAN CORPUSCULAR HEMOGLOBIN 29.8 pg (29.0-33.0); MEAN CORPUSCULAR HGB CONC 31.1 g/dl (32.0-37.0); MEAN PLATELET VOLUME 11.2 fl (7.4-10.4); MONOCYTE # 1.5 10^3/ul (0.3-0.9); MONOCYTES % 7.5 % (0.0-11.0); NEUTROPHIL # 13.3 10^3/ul (1.6-7.5); NEUTROPHILS % 67.1 % (39.0-77.0); PLATELET COUNT 297 10^3/UL (140-415); RED BLOOD COUNT 2.75 10^6/ul (4.70-6.10); RED CELL DISTRIBUTION WIDTH 20.9 % (11.5-14.5)
[2018-05-10 07:36] LABS: WHITE BLOOD COUNT 19.8 10^3/ul (4.8-10.8)
[2018-05-10 08:10] LABS: ALBUMIN 2.4 g/dl (3.3-4.9); ANION GAP 8 (5-13); BLOOD UREA NITROGEN 9 mg/dl (7-20); CALCIUM 8.2 mg/dl (8.4-10.2); CARBON DIOXIDE 37 mmol/L (21-31); CHLORIDE 95 mmol/L (97-110); CREATININE 0.61 mg/dl (0.61-1.24); GLUCOSE 83 mg/dl (70-220); MAGNESIUM 1.5 mg/dl (1.7-2.5); PHOSPHORUS 4.5 mg/dl (2.5-4.9); SODIUM 140 mmol/L (135-144)
[2018-05-10] MEDS: FUROSEMIDE 40 MG INJ IV ×2 (08:53→20:59)
[2018-05-10] MEDS: MIDODRINE 5 MG TAB GTB ×3 (08:53→17:40)
[2018-05-10] MEDS: SENNA/DOCUSATE NA (8.6MG/50MG) TAB PO ×2 (08:53→20:58)
[2018-05-10] MEDS: METHADONE (1 MG/ML 5 ML PO UD SYG) PO (08:55)
[2018-05-10] MEDS: POLYETHYLENE GLYCOL 17 GM PACKET PO (09:00)
[2018-05-10] MEDS: BALSAM PERU/CASTOR OIL 60 GM TUBE TOP ×2 (09:04→20:59)
[2018-05-10] MEDS: CEFEPIME 1GM/50 ML (PMX) 50 ML IVPB ×2 (11:17→20:59)
[2018-05-10] MEDS: HYDROCODONE/APAP (5/325) TAB PO (13:27)
[2018-05-10] MEDS: MAGNESIUM SULFATE 4 GM/100 ML 100 ML IVPB (16:57)
[2018-05-10] MEDS: MAGNESIUM OXIDE 400 MG TAB PO (20:58)
[2018-05-11] MEDS: VANCOMYCIN 1 GM 250 ML IVPB ×3 (00:38→23:38)
[2018-05-11 06:33] LABS: ADD MAN DIFF? NO
[2018-05-11 06:41] LABS: BASOPHIL # 0.1 10^3/ul (0.0-0.1); BASOPHILS % 0.7 % (0.0-2.0); EOSINOPHILS # 0.1 10^3/ul (0.0-0.5); EOSINOPHILS % 0.6 % (0.0-7.0); HEMATOCRIT 26.3 % (42.0-52.0); HEMOGLOBIN 8.1 g/dl (14.0-18.0); LYMPHOCYTES # 3.3 10^3/ul (0.8-2.9); LYMPHOCYTES % 17.3 % (15.0-51.0); MEAN CORPUSCULAR HGB CONC 30.8 g/dl (32.0-37.0); MEAN CORPUSCULAR VOLUME 97.4 fl (82.0-101.0); MEAN PLATELET VOLUME 11.1 fl (7.4-10.4); MONOCYTE # 1.3 10^3/ul (0.3-0.9); MONOCYTES % 6.8 % (0.0-11.0); NEUTROPHIL # 14.2 10^3/ul (1.6-7.5); NEUTROPHILS % 74.2 % (39.0-77.0); PLATELET COUNT 309 10^3/UL (140-415); RED CELL DISTRIBUTION WIDTH 20.1 % (11.5-14.5)
[2018-05-11 06:41] LABS: WHITE BLOOD COUNT 19.1 10^3/ul (4.8-10.8)
[2018-05-11 07:11] LABS: ALBUMIN 2.5 g/dl (3.3-4.9); ANION GAP 8 (5-13); BLOOD UREA NITROGEN 11 mg/dl (7-20); CALCIUM 8.2 mg/dl (8.4-10.2); CARBON DIOXIDE 34 mmol/L (21-31); CHLORIDE 95 mmol/L (97-110); CREATININE 0.77 mg/dl (0.61-1.24); GLUCOSE 163 mg/dl (70-220); MAGNESIUM 2.2 mg/dl (1.7-2.5); PHOSPHORUS 4.3 mg/dl (2.5-4.9); SODIUM 137 mmol/L (135-144)
[2018-05-11] MEDS: SENNA/DOCUSATE NA (8.6MG/50MG) TAB PO ×2 (08:26→20:59)
[2018-05-11] MEDS: FUROSEMIDE 40 MG INJ IV ×2 (08:27→20:59)
[2018-05-11] MEDS: MAGNESIUM OXIDE 400 MG TAB PO ×2 (08:27→20:59)
[2018-05-11] MEDS: POLYETHYLENE GLYCOL 17 GM PACKET PO ×2 (08:27→08:34)
[2018-05-11] MEDS: METHADONE (1 MG/ML 5 ML PO UD SYG) PO (08:28)
[2018-05-11] MEDS: CEFEPIME 1GM/50 ML (PMX) 50 ML IVPB ×2 (08:40→20:59)
[2018-05-11] MEDS: BALSAM PERU/CASTOR OIL 60 GM TUBE TOP ×2 (08:40→21:03)
[2018-05-11] MEDS: MIDODRINE 5 MG TAB GTB ×3 (08:40→17:13)
[2018-05-11] MEDS: CASPOFUNGIN 70 MG in SOD CHLORIDE 0.9% 250 ML IVPB (14:33)
[2018-05-11] MEDS: SOD CHLORIDE 0.9% 1,000 ML IV (16:22)
[2018-05-11] MEDS: HYDROCODONE/APAP (5/325) TAB PO ×2 (17:18→17:45)
[2018-05-12] MEDS: SOD CHLORIDE 0.9% 1,000 ML IV ×2 (07:55→16:17)
[2018-05-12] MEDS: POLYETHYLENE GLYCOL 17 GM PACKET PO (08:56)
[2018-05-12] MEDS: MAGNESIUM OXIDE 400 MG TAB PO ×2 (08:56→20:30)
[2018-05-12] MEDS: FUROSEMIDE 40 MG INJ IV ×2 (08:56→20:30)
[2018-05-12] MEDS: CEFEPIME 1GM/50 ML (PMX) 50 ML IVPB ×2 (08:56→20:25)
[2018-05-12] MEDS: SENNA/DOCUSATE NA (8.6MG/50MG) TAB PO ×2 (08:56→20:30)
[2018-05-12] MEDS: METHADONE (1 MG/ML 5 ML PO UD SYG) PO (08:57)
[2018-05-12] MEDS: BALSAM PERU/CASTOR OIL 60 GM TUBE TOP ×2 (09:00→20:31)
[2018-05-12] MEDS: MIDODRINE 5 MG TAB GTB ×3 (09:07→18:03)
[2018-05-12] MEDS: HYDROCODONE/APAP (5/325) TAB PO ×2 (10:27→20:40)
[2018-05-12 12:13] LABS: VANCOMYCIN,TROUGH 14.1 ug/ml (10.0-20.0)
[2018-05-12] MEDS: VANCOMYCIN 1 GM 250 ML IVPB ×2 (12:56→23:46)
[2018-05-12] MEDS: CASPOFUNGIN 50 MG in SOD CHLORIDE 0.9% 250 ML IVPB (15:12)
[2018-05-13 07:53] LABS: CREATININE 0.71 mg/dl (0.61-1.24)
[2018-05-13 07:53] LABS: BLOOD UREA NITROGEN 12 mg/dl (7-20)
[2018-05-13] MEDS: MIDODRINE 5 MG TAB GTB ×3 (08:41→18:05)
[2018-05-13] MEDS: POLYETHYLENE GLYCOL 17 GM PACKET PO (08:53)
[2018-05-13] MEDS: SENNA/DOCUSATE NA (8.6MG/50MG) TAB PO ×2 (08:53→20:33)
[2018-05-13] MEDS: CEFEPIME 1GM/50 ML (PMX) 50 ML IVPB (08:53)
[2018-05-13] MEDS: METHADONE (1 MG/ML 5 ML PO UD SYG) PO (08:53)
[2018-05-13] MEDS: MAGNESIUM OXIDE 400 MG TAB PO ×2 (08:53→20:20)
[2018-05-13] MEDS: FUROSEMIDE 40 MG INJ IV ×2 (08:53→20:19)
[2018-05-13] MEDS: BALSAM PERU/CASTOR OIL 60 GM TUBE TOP ×2 (08:54→20:32)
[2018-05-13] MEDS: VANCOMYCIN 1 GM 250 ML IVPB (11:49)
[2018-05-13 12:38] LABS: PROCALCITONIN 1.47 ng/mL (<0.10)
[2018-05-13] MEDS: CASPOFUNGIN 50 MG in SOD CHLORIDE 0.9% 250 ML IVPB (14:46)
[2018-05-13] MEDS: SOD CHLORIDE 0.9% 1,000 ML IV (14:46)
[2018-05-13] MEDS: CEFTRIAXONE 2 GM/50 ML (PMX) 50 ML IVPB (15:56)
[2018-05-13] MEDS: HYDROCODONE/APAP (5/325) TAB PO (15:56)
[2018-05-14] MEDS: HYDROCODONE/APAP (5/325) TAB PO ×3 (02:28→20:33)
[2018-05-14 06:21] LABS: ADD MAN DIFF? NO
[2018-05-14 06:28] LABS: ABNORMAL IP MESSAGE 1; BASOPHIL # 0.1 10^3/ul (0.0-0.1); BASOPHILS % 0.7 % (0.0-2.0); EOSINOPHILS # 0.3 10^3/ul (0.0-0.5); EOSINOPHILS % 1.8 % (0.0-7.0); HEMATOCRIT 23.2 % (42.0-52.0); HEMOGLOBIN 7.1 g/dl (14.0-18.0); LYMPHOCYTES # 4.2 10^3/ul (0.8-2.9); LYMPHOCYTES % 23.7 % (15.0-51.0); MEAN CORPUSCULAR HEMOGLOBIN 29.5 pg (29.0-33.0); MEAN CORPUSCULAR HGB CONC 30.6 g/dl (32.0-37.0); MEAN CORPUSCULAR VOLUME 96.3 fl (82.0-101.0); MEAN PLATELET VOLUME 11.3 fl (7.4-10.4); MONOCYTE # 1.6 10^3/ul (0.3-0.9); NEUTROPHIL # 11.4 10^3/ul (1.6-7.5); NEUTROPHILS % 64.3 % (39.0-77.0); PLATELET COUNT 322 10^3/UL (140-415); POSITIVE DIFF @See below; RED BLOOD COUNT 2.41 10^6/ul (4.70-6.10); RED CELL DISTRIBUTION WIDTH 18.5 % (11.5-14.5)
[2018-05-14 06:28] LABS: WHITE BLOOD COUNT 17.7 10^3/ul (4.8-10.8)
[2018-05-14] MEDS: MIDODRINE 5 MG TAB GTB ×3 (08:15→16:56)
[2018-05-14] MEDS: POLYETHYLENE GLYCOL 17 GM PACKET PO (08:17)
[2018-05-14] MEDS: BALSAM PERU/CASTOR OIL 60 GM TUBE TOP ×2 (08:17→20:32)
[2018-05-14] MEDS: FLUCONAZOLE 100 MG TAB PO (08:23)
[2018-05-14] MEDS: SENNA/DOCUSATE NA (8.6MG/50MG) TAB PO ×2 (08:23→20:32)
[2018-05-14] MEDS: MAGNESIUM OXIDE 400 MG TAB PO ×2 (08:23→20:29)
[2018-05-14] MEDS: FUROSEMIDE 40 MG INJ IV ×2 (08:23→20:28)
[2018-05-14] MEDS: METHADONE (1 MG/ML 5 ML PO UD SYG) PO (08:24)
[2018-05-14] MEDS: SOD CHLORIDE 0.9% 1,000 ML IV (10:10)
[2018-05-14] MEDS: CEFTRIAXONE 2 GM/50 ML (PMX) 50 ML IVPB (17:00)
[2018-05-15] MEDS: HYDROCODONE/APAP (5/325) TAB PO ×3 (03:00→18:07)
[2018-05-15] MEDS: SOD CHLORIDE 0.9% 1,000 ML IV ×2 (03:19→19:15)
[2018-05-15] MEDS: MIDODRINE 5 MG TAB GTB ×3 (08:31→17:00)
[2018-05-15] MEDS: MAGNESIUM OXIDE 400 MG TAB PO ×2 (09:40→20:37)
[2018-05-15] MEDS: FUROSEMIDE 40 MG INJ IV ×2 (09:40→20:39)
[2018-05-15] MEDS: POLYETHYLENE GLYCOL 17 GM PACKET PO (09:41)
[2018-05-15] MEDS: SENNA/DOCUSATE NA (8.6MG/50MG) TAB PO ×3 (09:41→20:40)
[2018-05-15] MEDS: BALSAM PERU/CASTOR OIL 60 GM TUBE TOP ×2 (09:41→20:40)
[2018-05-15] MEDS: FLUCONAZOLE 100 MG TAB PO (09:47)
[2018-05-15] MEDS: METHADONE (1 MG/ML 5 ML PO UD SYG) PO (09:49)
[2018-05-15] MEDS: CEFTRIAXONE 2 GM/50 ML (PMX) 50 ML IVPB (15:00)
[2018-05-16] MEDS: MIDODRINE 5 MG TAB GTB ×3 (08:29→17:00)
[2018-05-16] MEDS: BALSAM PERU/CASTOR OIL 60 GM TUBE TOP ×2 (08:30→21:01)
[2018-05-16] MEDS: FLUCONAZOLE 100 MG TAB PO (08:31)
[2018-05-16] MEDS: METHADONE (1 MG/ML 5 ML PO UD SYG) PO (08:31)
[2018-05-16] MEDS: FUROSEMIDE 40 MG INJ IV ×2 (08:31→20:59)
[2018-05-16] MEDS: MAGNESIUM OXIDE 400 MG TAB PO ×2 (08:31→20:58)
[2018-05-16] MEDS: POLYETHYLENE GLYCOL 17 GM PACKET PO (08:31)
[2018-05-16] MEDS: SENNA/DOCUSATE NA (8.6MG/50MG) TAB PO ×2 (08:32→20:59)
[2018-05-16] MEDS: SOD CHLORIDE 0.9% 1,000 ML IV (11:55)
[2018-05-16] MEDS: HYDROCODONE/APAP (5/325) TAB PO ×2 (13:19→18:39)
[2018-05-16] MEDS: CEFTRIAXONE 2 GM/50 ML (PMX) 50 ML IVPB (15:46)
[2018-05-17] MEDS: SOD CHLORIDE 0.9% 1,000 ML IV ×2 (04:35→08:35)
[2018-05-17] MEDS: MIDODRINE 5 MG TAB GTB ×2 (08:27→13:00)
[2018-05-17] MEDS: FUROSEMIDE 40 MG INJ IV (08:36)
[2018-05-17] MEDS: SENNA/DOCUSATE NA (8.6MG/50MG) TAB PO (08:40)
[2018-05-17] MEDS: FLUCONAZOLE 100 MG TAB PO (08:40)
[2018-05-17] MEDS: MAGNESIUM OXIDE 400 MG TAB PO (08:40)
[2018-05-17] MEDS: BALSAM PERU/CASTOR OIL 60 GM TUBE TOP (08:41)
[2018-05-17] MEDS: METHADONE (1 MG/ML 5 ML PO UD SYG) PO (08:41)
[2018-05-17] MEDS: POLYETHYLENE GLYCOL 17 GM PACKET PO (08:41)
[2018-05-17] MEDS: HYDROCODONE/APAP (5/325) TAB PO (13:21)
[2018-05-17] MEDS: CEFTRIAXONE 2 GM/50 ML (PMX) 50 ML IVPB (14:43)
== END 2018-05-17 16:35 | DRG 871 ==
LOC: TEL 04-28 09:02 → 5EC 04-29 15:34 → TEL 05-01 05:28 → 5EC 05-03 18:52 → E/R 18:40 → ICU 05-01 11:00 → TEL 20:30
PROC: 30233R1 Transfusion of Nonautologous Platelets into Peripheral Vein, Percutaneous Approach (ICD-10-PCS; 2018-04-28)
PROC: 02HV33Z Insertion of Infusion Device into Superior Vena Cava, Percutaneous Approach (ICD-10-PCS; principal; 2018-05-03)
PROC: 30233N1 Transfusion of Nonautologous Red Blood Cells into Peripheral Vein, Percutaneous Approach (ICD-10-PCS; 2018-05-05)
DX: A41.9 Sepsis, unspecified organism (principal); I33.0 Acute and subacute infective endocarditis; I26.90 Septic pulmonary embolism without acute cor pulmonale; G92 Toxic encephalopathy; B19.10 Unspecified viral hepatitis B without hepatic coma; I76 Septic arterial embolism; F11.23 Opioid dependence with withdrawal; J90 Pleural effusion, not elsewhere classified; R65.20 Severe sepsis without septic shock; B95.61 Methicillin susceptible Staphylococcus aureus infection as the cause of diseases classified elsewhere; B95.1 Streptococcus, group B, as the cause of diseases classified elsewhere; B19.20 Unspecified viral hepatitis C without hepatic coma; D63.8 Anemia in other chronic diseases classified elsewhere; D69.6 Thrombocytopenia, unspecified; F17.200 Nicotine dependence, unspecified, uncomplicated; M54.5 Low back pain; R26.2 Difficulty in walking, not elsewhere classified; R22.31 Localized swelling, mass and lump, right upper limb; Z91.19 Patient's noncompliance with other medical treatment and regimen; Z90.49 Acquired absence of other specified parts of digestive tract
CPT/HCPCS: 36430; 36569; 71045; 71260; 72131; 72149; 74176; 76937; 78806; 80048; 80053; 80069; 80202; 80307; 81001; 82270; 82550; 82553; 82565; 82728; 82962; 83540; 83605; 83690; 83735; 83880; 84145; 84484; 84520; 85025; 85610; 85730; 86703; 86850; 86900; 86901; 86920; 87040; 87081; 87086; 93005; 93306; 93971; 96374; 96375; 97116; 97161; 97530; 99291-25

== ENCOUNTER 2018-07-14 11:18 | Inpatient (IN) | payer OTHER ==
[2018-07-14 12:31] LABS: WHITE BLOOD COUNT 30.7 10^3/ul (4.8-10.8)
[2018-07-14 12:31] LABS: ABNORMAL IP MESSAGE 1; HEMOGLOBIN 11.6 g/dl (14.0-18.0); MEAN CORPUSCULAR HGB CONC 33.1 g/dl (32.0-37.0); MEAN CORPUSCULAR VOLUME 78.3 fl (82.0-101.0); NUCLEATED RED BLOOD CELLS% 0.1 /100WBC (0.0-0.0); PLATELET COUNT 59 10^3/UL (140-415); POSITIVE DIFF @See below; RED BLOOD COUNT 4.47 10^6/ul (4.70-6.10); RED CELL DISTRIBUTION WIDTH 18.1 % (11.5-14.5)
[2018-07-14 12:34] LABS: ADD MAN DIFF? YES
[2018-07-14 12:49] LABS: ALANINE AMINOTRANSFERASE 21 IU/L (13-69); ALBUMIN 2.3 g/dl (3.3-4.9); ALBUMIN/GLOBULIN RATIO 0.44; ALKALINE PHOSPHATASE 160 IU/L (42-121); ANION GAP 8 (5-13); ASPARTATE AMINO TRANSFERASE 74 IU/L (15-46); BILIRUBIN,INDIRECT 0.4 mg/dl (0-1.1); BILIRUBIN,TOTAL 0.4 mg/dl (0.2-1.3); BLOOD UREA NITROGEN 31 mg/dl (7-20); CARBON DIOXIDE 24 mmol/L (21-31); CHLORIDE 99 mmol/L (97-110); CREATININE 0.62 mg/dl (0.61-1.24); Estimated GFR > 60 mL/min (>60); GLUCOSE 127 mg/dl (70-220); POTASSIUM 5.1 mmol/L (3.5-5.1); SODIUM 131 mmol/L (135-144); TOTAL PROTEIN 7.5 g/dl (6.1-8.1)
[2018-07-14 12:52] LABS: INR 1.62; PROTIME 19.3 Sec (11.9-14.9); PT RATIO 1.5
[2018-07-14 12:53] LABS: PARTIAL THROMBOPLASTIN TIME 33.4 Sec (23.0-35.0)
[2018-07-14 12:57] LABS: ANISOCYTOSIS 2+ (0-0); BAND NEUTROPHILS #M 4.2 10^3/ul (0.0-0.6); BAND NEUTROPHILS % (M) 14 % (0-4); GIANT THROMBO% (M) 1 % (0-0); LYMPHOCYTES #M 1.2 10^3/ul (0.8-2.9); LYMPHOCYTES % (M) 4 % (15-51); MONOCYTE #M 0.9 10^3/ul (0.3-0.9); MONOCYTES % (M) 3 % (0-11); PLATELET ESTIMATE DECREASED; POIKILOCYTOSIS 1+ (0-0); SEG NEUT #M 25.5 10^3/ul (1.6-7.5); SEGMENTED NEUTROPHILS (M) % 79 % (39-77); SMUDGE%M 6 % (0-0); TOXIC GRANULATION 1+ (0-0)
[2018-07-14 13:01] LABS: TROPONIN-I 0.088 ng/ml (0.000-0.120)
[2018-07-14 13:09] LABS: LACTIC ACID 2.8 mmol/L (0.5-2.0)
[2018-07-14] MEDS ORDERED: ONDANSETRON 4 MG INJ IV ×2 (13:30→14:30)
[2018-07-14] MEDS: LIDOCAINE 1% (MPF) 5 ML VIAL SC ×2 (13:30→15:53)
[2018-07-14] MEDS ORDERED: ACETAMINOPHEN 325 MG TAB PO (13:30)
[2018-07-14] MEDS: SODIUM CHLORIDE 0.9% 1L BAG IV* (13:47)
[2018-07-14] MEDS: CEFEPIME 1GM/50 ML (PMX) 50 ML IVPB ×2 (13:54→22:18)
[2018-07-14] MEDS ORDERED: ZOLPIDEM 5 MG TAB PO (14:30)
[2018-07-14] MEDS ORDERED: VANCOMYCIN IV PER PHARMACY XX (14:30)
[2018-07-14] MEDS ORDERED: NACL 0.9% 3 ML SYG IV (14:30)
[2018-07-14] MEDS: VANCOMYCIN 1 GM (PMX) 250 ML IVPB (14:39)
[2018-07-14 15:37] LABS: LACTIC ACID 2.5 mmol/L (0.5-2.0)
[2018-07-14] MEDS: SOD CHLORIDE 0.9% 1,000 ML IV ×2 (17:04→22:30)
[2018-07-14 20:19] LABS: LACTIC ACID 1.9 mmol/L (0.5-2.0)
[2018-07-15] MEDS: VANCOMYCIN 1 GM 250 ML IVPB ×2 (01:28→13:37)
[2018-07-15] MEDS: CEFEPIME 1GM/50 ML (PMX) 50 ML IVPB ×3 (05:39→21:11)
[2018-07-15] MEDS: SOD CHLORIDE 0.9% 1,000 ML IV ×3 (05:39→22:30)
[2018-07-15 06:09] LABS: ADD MAN DIFF? NO
[2018-07-15 06:13] LABS: ABNORMAL IP MESSAGE 1; BASOPHIL # 0.1 10^3/ul (0.0-0.1); BASOPHILS % 0.4 % (0.0-2.0); HEMATOCRIT 36.6 % (42.0-52.0); HEMOGLOBIN 12.1 g/dl (14.0-18.0); LYMPHOCYTES # 2.5 10^3/ul (0.8-2.9); LYMPHOCYTES % 10.1 % (15.0-51.0); MEAN CORPUSCULAR HEMOGLOBIN 25.9 pg (29.0-33.0); MEAN CORPUSCULAR HGB CONC 33.1 g/dl (32.0-37.0); MEAN CORPUSCULAR VOLUME 78.2 fl (82.0-101.0); MONOCYTE # 1.5 10^3/ul (0.3-0.9); MONOCYTES % 6.1 % (0.0-11.0); NEUTROPHIL # 20.5 10^3/ul (1.6-7.5); NEUTROPHILS % 81.5 % (39.0-77.0); NUCLEATED RED BLOOD CELLS% 0.1 /100WBC (0.0-0.0); PLATELET COUNT 58 10^3/UL (140-415); POSITIVE DIFF @See below; RED BLOOD COUNT 4.68 10^6/ul (4.70-6.10); RED CELL DISTRIBUTION WIDTH 17.9 % (11.5-14.5)
[2018-07-15 06:13] LABS: WHITE BLOOD COUNT 25.2 10^3/ul (4.8-10.8)
[2018-07-15 06:43] LABS: ANION GAP 9 (5-13); BLOOD UREA NITROGEN 33 mg/dl (7-20); CARBON DIOXIDE 21 mmol/L (21-31); CHLORIDE 108 mmol/L (97-110); CREATININE 0.57 mg/dl (0.61-1.24); Estimated GFR > 60 mL/min (>60); GLUCOSE 120 mg/dl (70-220); POTASSIUM 4.6 mmol/L (3.5-5.1); SODIUM 138 mmol/L (135-144)
[2018-07-15] MEDS: FAMOTIDINE 20 MG TAB PO (21:11)
[2018-07-16] MEDS: VANCOMYCIN 1 GM 250 ML IVPB (02:00)
[2018-07-16] MEDS: HALOPERIDOL 5 MG INJ IM ×4 (03:03→23:39)
[2018-07-16] MEDS: CEFEPIME 1GM/50 ML (PMX) 50 ML IVPB ×2 (06:00→22:00)
[2018-07-16] MEDS: SOD CHLORIDE 0.9% 1,000 ML IV ×2 (06:15→22:30)
[2018-07-16 06:55] LABS: ABNORMAL IP MESSAGE 1; HEMATOCRIT 37.2 % (42.0-52.0); HEMOGLOBIN 12.4 g/dl (14.0-18.0); MEAN CORPUSCULAR HEMOGLOBIN 25.9 pg (29.0-33.0); MEAN CORPUSCULAR HGB CONC 33.3 g/dl (32.0-37.0); MEAN CORPUSCULAR VOLUME 77.7 fl (82.0-101.0); NUCLEATED RED BLOOD CELLS% 0.1 /100WBC (0.0-0.0); PLATELET COUNT 80 10^3/UL (140-415); POSITIVE DIFF @See below; RED BLOOD COUNT 4.79 10^6/ul (4.70-6.10); RED CELL DISTRIBUTION WIDTH 18.3 % (11.5-14.5)
[2018-07-16 06:55] LABS: WHITE BLOOD COUNT 29.7 10^3/ul (4.8-10.8)
[2018-07-16 07:01] LABS: ADD MAN DIFF? YES
[2018-07-16 07:08] LABS: MAGNESIUM 1.9 mg/dl (1.7-2.5)
[2018-07-16 07:08] LABS: PHOSPHORUS 3.3 mg/dl (2.5-4.9)
[2018-07-16 07:18] LABS: ANION GAP 6 (5-13); BLOOD UREA NITROGEN 28 mg/dl (7-20); CALCIUM 8.4 mg/dl (8.4-10.2); CARBON DIOXIDE 23 mmol/L (21-31); CHLORIDE 109 mmol/L (97-110); CREATININE 0.46 mg/dl (0.61-1.24); Estimated GFR > 60 mL/min (>60); GLUCOSE 123 mg/dl (70-220); POTASSIUM 4.4 mmol/L (3.5-5.1); SODIUM 138 mmol/L (135-144)
[2018-07-16] MEDS: FAMOTIDINE 20 MG TAB PO ×2 (09:25→23:39)
[2018-07-16 09:37] LABS: SEGMENTED NEUTROPHILS (M) % 93 % (39-77)
[2018-07-16 09:38] LABS: ANISOCYTOSIS 2+ (0-0); BAND NEUTROPHILS #M 0.8 10^3/ul (0.0-0.6); BAND NEUTROPHILS % (M) 3 % (0-4); GIANT THROMBO% (M) 1 % (0-0); HYPOCHROMASIA 2+ (0-0); LYMPHOCYTES #M 0.2 10^3/ul (0.8-2.9); LYMPHOCYTES % (M) 1 % (15-51); MICROCYTOSIS 1+ (0-0); MONOCYTE #M 0.8 10^3/ul (0.3-0.9); MONOCYTES % (M) 3 % (0-11); PLATELET ESTIMATE DECREASED; POIKILOCYTOSIS 1+ (0-0); POLYCHROMASIA 1+ (0-0); SEG NEUT #M 27.9 10^3/ul (1.6-7.5); SMUDGE%M 11 % (0-0); TARGET CELLS 2+ (0-0); TOXIC GRANULATION 1+ (0-0)
[2018-07-16] MEDS ORDERED: HALOPERIDOL 5 MG INJ IM (10:00)
[2018-07-16] MEDS: CITALOPRAM 10 MG TAB PO (13:16)
[2018-07-16 14:15] LABS: VANCOMYCIN,TROUGH < 5.0 ug/ml (10.0-20.0)
[2018-07-17] MEDS: VANCOMYCIN 1 GM 250 ML IVPB (02:00)
[2018-07-17] MEDS: HALOPERIDOL 5 MG INJ IM ×3 (05:46→23:15)
[2018-07-17] MEDS: CEFEPIME 1GM/50 ML (PMX) 50 ML IVPB (06:00)
[2018-07-17] MEDS: SOD CHLORIDE 0.9% 1,000 ML IV ×3 (06:30→22:19)
[2018-07-17] MEDS ORDERED: LIDOCAINE 1% (MPF) 5 ML VIAL SC (07:00)
[2018-07-17] MEDS: CITALOPRAM 10 MG TAB PO (08:32)
[2018-07-17] MEDS: FAMOTIDINE 20 MG TAB PO ×2 (08:32→21:00)
[2018-07-17] MEDS: ENOXAPARIN 40 MG/0.4 ML SYG SC (08:38)
[2018-07-17] MEDS: TRIMETHOPRIM/SULFAMETHOXAZOLE 15 ML in DEXTROSE 5% 500 ML IVPB ×2 (14:00→22:19)
[2018-07-17 17:12] LABS: ADD UMIC YES; UR ASCORBIC ACID NEGATIVE (NEGATIVE); UR BILIRUBIN (Dip) NEGATIVE (NEGATIVE); UR BLOOD (Dip) 1+ mg/dL (NEGATIVE); UR CLARITY SLIGHTLY CLOUDY (CLEAR); UR COLOR AMBER (YELLOW); UR GLUCOSE (Dip) NEGATIVE (NEGATIVE); UR KETONES (Dip) NEGATIVE (NEGATIVE); UR LEUKOCYTE ESTERASE (Dip) NEGATIVE Leu/ul (NEGATIVE); UR MUCUS FEW /HPF (NONE SEEN); UR NITRITE (Dip) NEGATIVE (NEGATIVE); UR RBC 2 /HPF (0-5); UR TOTAL PROTEIN (Dip) NEGATIVE (NEGATIVE); UR UROBILINOGEN (Dip) 2+ mg/dL (NEGATIVE); UR WBC 23 /HPF (0-5)
[2018-07-17] MEDS: AMPICILLIN 1 GM/NS (PMX) 50 ML IVPB (18:00)
[2018-07-18] MEDS: AMPICILLIN 1 GM/NS (PMX) 50 ML IVPB ×2 (00:33→05:34)
[2018-07-18] MEDS: TRIMETHOPRIM/SULFAMETHOXAZOLE 15 ML in DEXTROSE 5% 500 ML IVPB (05:55)
[2018-07-18 06:24] LABS: ABNORMAL IP MESSAGE 1; HEMATOCRIT 29.6 % (42.0-52.0); HEMOGLOBIN 9.9 g/dl (14.0-18.0); MEAN CORPUSCULAR HEMOGLOBIN 26.8 pg (29.0-33.0); MEAN CORPUSCULAR HGB CONC 33.4 g/dl (32.0-37.0); MEAN CORPUSCULAR VOLUME 80.2 fl (82.0-101.0); NUCLEATED RED BLOOD CELLS% 0.5 /100WBC (0.0-0.0); PLATELET COUNT 110 10^3/UL (140-415); POSITIVE DIFF @See below; RED BLOOD COUNT 3.69 10^6/ul (4.70-6.10); RED CELL DISTRIBUTION WIDTH 18.4 % (11.5-14.5)
[2018-07-18 06:24] LABS: WHITE BLOOD COUNT 67.5 10^3/ul (4.8-10.8)
[2018-07-18] MEDS: SOD CHLORIDE 0.9% 1,000 ML IV (06:31)
[2018-07-18 06:37] LABS: ADD MAN DIFF? YES
[2018-07-18 07:45] LABS: ANISOCYTOSIS 1+ (0-0); BAND NEUTROPHILS #M 15.5 10^3/ul (0.0-0.6); BAND NEUTROPHILS % (M) 23 % (0-4); BURR CELLS 1+ (0-0); HYPOCHROMASIA 1+ (0-0); MONOCYTE #M 0.6 10^3/ul (0.3-0.9); MONOCYTES % (M) 1 % (0-11); PLATELET ESTIMATE DECREASED; POIKILOCYTOSIS 2+ (0-0); POLYCHROMASIA 1+ (0-0); SEG NEUT #M 61.8 10^3/ul (1.6-7.5); SEGMENTED NEUTROPHILS (M) % 76 % (39-77); SMUDGE%M 5 % (0-0); TARGET CELLS 1+ (0-0)
[2018-07-18] MEDS: FAMOTIDINE 20 MG TAB PO (08:34)
[2018-07-18] MEDS: CITALOPRAM 10 MG TAB PO (08:34)
[2018-07-18] MEDS: ENOXAPARIN 40 MG/0.4 ML SYG SC (08:38)
[2018-07-18] MEDS: HALOPERIDOL 5 MG INJ IM (10:27)
== END 2018-07-18 12:16 | disposition left against medical advice (07) | DRG 314 ==
LOC: E/R 11:18 → 6WM 13:29
DX: T80.211A Bloodstream infection due to central venous catheter, initial encounter (principal); A41.81 Sepsis due to Enterococcus; G93.41 Metabolic encephalopathy; R65.20 Severe sepsis without septic shock; E43 Unspecified severe protein-calorie malnutrition; J18.9 Pneumonia, unspecified organism; A41.01 Sepsis due to Methicillin susceptible Staphylococcus aureus; A41.59 Other Gram-negative sepsis; I26.90 Septic pulmonary embolism without acute cor pulmonale; Z68.1 Body mass index [BMI] 19.9 or less, adult; B18.1 Chronic viral hepatitis B without delta-agent; F11.259 Opioid dependence with opioid-induced psychotic disorder, unspecified; I08.1 Rheumatic disorders of both mitral and tricuspid valves; R62.7 Adult failure to thrive; D69.6 Thrombocytopenia, unspecified; B18.2 Chronic viral hepatitis C; F17.200 Nicotine dependence, unspecified, uncomplicated; D63.8 Anemia in other chronic diseases classified elsewhere; I27.20 Pulmonary hypertension, unspecified
CPT/HCPCS: 70450; 71045; 80048; 80053; 80202; 81001; 83605; 83735; 84100; 84484; 85025; 85610; 85730; 87040-91; 87070; 87086; 93005; 93306; 99291-25